=== PATIENT | female | born 1960 | race Caucasian/White ===

== ENCOUNTER → 2021-03-03 06:27 | Outpatient (CLI) | payer OTHER, SELFPAY ==
--- NOTE | 2021-03-03 | DI.MRI.S_ITS ---
PROCEDURE: MR BRAIN (IAC) WWO CON INDICATIONS: Vertigo of central origin TECHNIQUE: Noncontrast sagittal T1 spin echo, axial FLAIR, axial gradient echo, axial diffusion and ADC through the brain. Axial thin-slice 3D CISS, coronal TruFISP, axial T1 spin echo with fat saturation through the internal auditory canals. After the administration of contrast, thin slice axial and coronal T1 spin echo with fat saturation through the internal auditory canals, and axial T1 spin echo with fat saturation through the brain. COMPARISON: [facility], CT, HEAD WITHOUT CONTRAST, 07/26/2016, 8:06. CT, HEAD WITHOUT CONTRAST, 08/19/2017, 6:24. FINDINGS: Image quality: Excellent. Cerebellopontine angles: No cerebellopontine angle masses. Inner ear structures appear normally formed. No suspicious enhancement in the internal auditory canal or along the course of the 7th cranial nerve. CSF spaces: Ventricles are normal in size and shape. No extra-axial fluid collections. Basal cisterns are patent. Brain: No intracranial bleeds or mass effects. There is mild diffuse cerebral volume loss. There are minimal periventricular and subcortical white matter chronic microvascular ischemic changes. Naqvi-white matter interface is intact. No abnormal intracranial enhancement. Diffusion weighted images demonstrate no acute ischemic insults. Brainstem appears normal. Normal intravascular flow voids are present. Skull and face: Calvarial marrow signal is normal. Orbits appear normal. Sinuses: Sinuses and mastoids are clear. IMPRESSION: 1. No evidence of vestibular schwannoma. 2. No acute intracranial disease process. 3. No abnormal intracranial mass or mass effect. 4. No suspicious postcontrast enhancement. 5. Mild, diffuse cerebral volume loss. 6. Minimal periventricular and subcortical white matter chronic microvascular ischemic change Dictated by: Margarita Caballero MD, PhD on 03/03/2021 at 13:50 Approved by: Margarita Caballero MD, PhD on 03/03/2021 at 13:56
== END ==
PROVIDERS: PCP Internal Medicine; Referring Provider Otolaryngology; Visit Provider Otolaryngology
DX: H81.4 Vertigo of central origin (principal)
CPT/HCPCS: 70553

== ENCOUNTER 2021-04-15 22:22 | Emergency (ER) | payer OTHER, SELFPAY ==
[2021-04-15 22:28] VITALS: BP 186/103; PULSE 80; RESP 22; TEMP 36.7; O2SAT 98; BMI 47.2
--- NOTE | 2021-04-15 22:36 | DI.RAD.S_ITS ---
PROCEDURE: XR CHEST 1V INDICATIONS: chest pain TECHNIQUE: One view of the chest was acquired. COMPARISON: None. FINDINGS: Surgical changes and devices: None. Lungs and pleura: Lungs are clear. No pleural effusions or pneumothorax. Incidental note is made of an azygos lobe. Mediastinum: Mediastinal contours appear normal. Heart size is normal. Bones and chest wall: No suspicious bony lesions. Age-appropriate bony degenerative changes are seen. Overlying soft tissues appear unremarkable. IMPRESSION: Unremarkable single-view chest for age. Incidental note is made of: Azygos lobe Note: No significant discrepancy from the preliminary report. Dictated by: Geovanny Carpenter M.D. on 04/16/2021 at 8:21 Approved by: Geovanny Carpenter M.D. on 04/16/2021 at 8:21
[2021-04-15 22:46] LABS: Prothrombin Time 11.1 SECONDS (10.1-12.7)
[2021-04-15 22:49] LABS: PTT Partial Thromboplastin Tim 33 SECONDS (26.4-36.2)
[2021-04-15 22:50] LABS: Add Manual Diff / Slide Review NO; Alanine Aminotransferase 30 IU/L (<35); Albumin 4.1 g/dL (3.5-5.0); Albumin Globulin Ratio 1.5 (1.0-2.8); Alkaline Phosphatase 71 U/L (38-126); Aspartate Aminotransferase 33 IU/L (14-36); BUN Creatinine Ratio 42.4 (6-22); Basophils Absolute Auto 100 /uL (0-100); Basophils Percent Auto 0.9 % (0-2); Bilirubin Total 0.1 mg/dL (0.2-1.3); Blood Urea Nitrogen 25 mg/dL (7-17); Calcium 9.1 mg/dL (8.4-10.2); Carbon Dioxide 28 mmol/L (22-32); Chloride 107 mmol/L (98-107); Creatine Kinase 121 U/L (30-135); Eosinophils Absolute Auto 300 /uL (0-450); Eosinophils Percent Auto 4.1 % (2-4); Estimated Glomerular Filt Rate > 60.0 mL/min (>60); Globulin 2.8 g/dL (1.7-4.1); Glucose 121 mg/dL (70-100); Hemoglobin 12.7 g/dL (12.0-16.0); Lipase 179 U/L (23-300); Lymphocytes Absolute Auto 2300 /uL (1100-4500); Lymphocytes Percent Auto 35.6 % (25-40); Mean Corpuscular HGB Conc 32.7 % (30-36); Mean Corpuscular Hemoglobin 26.6 PG (26-34); Mean Corpuscular Volume 81.5 fL (80-100); Monocytes Absolute Auto 500 /uL (0-900); Neutrophils Absolute Auto 3400 /uL (1500-7000); Neutrophils Percent Auto 52.4 % (50-75); Platelet Count 210 X10^3/uL (150-400); Potassium 4.2 mmol/L (3.4-5.1); Red Blood Cell Count 4.79 X10^6/uL (4.0-5.2); Red Cell Distribution Width 15.9 % (11.6-14.8); Sodium 142 mmol/L (137-145); Total Protein 6.9 g/dL (6.3-8.2); White Blood Cell Count 6.5 X10^3/uL (4.5-11.0)
[2021-04-15 23:01] VITALS: BP 147/72; PULSE 76; RESP 22; O2SAT 97
[2021-04-15 23:02] LABS: Troponin I < 0.012 ng/mL (0.01-0.034)
[2021-04-15 23:05] LABS: CKMB % Relative Index 0.8 % (1.5-5.0); Creatine Kinase MB 0.99 ng/mL (<2.37); HEMOLYSIS 19 (0-50)
--- NOTE | 2021-04-15 23:14 | ED_ITS ---
HPI - Chest Pain General Chief Complaint: Chest Pain Stated Complaint: chest pain Time Seen by Provider: 04/15/21 23:11 Source: patient Mode of arrival: Ambulatory Limitations: no limitations History of Present Illness HPI narrative: Patient is a 60-year-old female with history of cardiac ablation presenting with worsening chest heaviness. 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 She does not feel palpitations she gets burning up into her neck it feels like indigestion. Today the symptoms seem to be worse she denies any shortness of breath. She states that she previously was on propranolol however due to bradycardia she was taken off of it. On the monitor she has frequent episodes of xin ELLIS complaint: chest pain Onset (ago): unknown Duration: intermittent Onset: during rest and during exertion Quality: heaviness Pain radiation: none Relieving factors: nothing Exacerbating factors: nothing Related Data Home Medications Medication Instructions Recorded Confirmed triamcinolone acetonide 1 tiny TOPICAL PRN #0 08/13/16 05/14/18 betamethasone dipropionate 1 tiny TOPICAL PRN #0 05/08/17 05/14/18 Previous Rx's Medication Instructions Recorded propranolol 10 mg PO Q8HP PRN #15 tab 05/08/17 Allergies Allergy/AdvReac Type Severity Reaction Status Date / Time amoxicillin [AMOXICILLIN] Allergy Severe RASH ALL Verified 04/15/21 22:28 OVER BODY penicillin G [PENICILLIN G] Allergy Severe RASH ALL Verified 04/15/21 22:28 OVER BODY Review of Systems Review of Systems Narrative: GENERAL: Denies chills, fatigue, malaise, fever, sweats, travel HEENT: Denies sinus pain, ear pain, sore throat, difficulty swallowing, neck pain RESPIRATORY: Denies dyspnea, cough, wheezing, hemoptysis, sputum. CARDIOVASCULAR: See HPI GASTROINTESTINAL: Denies nausea, vomiting, abdominal pain, diarrhea, con stipation, melena. : Denies dysuria, frequency, incontinence, hematuria, urinary retention, flank pain. MUSCULOSKELETAL: Denies weakness, joint pain, or bony pain SKIN: No rash, no erythema, no pruritus NEUROLOGIC: Denies weakness, dizziness, headache, numbness, change in speech, confusion PSYCHIATRIC: No concerning psychosocial issues. 12 point review of systems is negative except for those stated above and HPI Patient History Medical History (Updated 04/16/21 @ 01:09 by Camille Morales DO) Alopecia (~01/2016) Anxiety Bradycardia (08/13/16) Cataracts, bilateral (2015) Pure hypercholesterolemia (08/13/16) Stress Surgical History History of third molar tooth extraction Status post surgery (06/18/14) Status post tonsillectomy and adenoidectomy Status post tubal ligation Family History Mother Diabetes mellitus Social History Smoking Status: Never smoker Smoking Status: Never smoker Substance Use Type: does not use Exam Initial Vital Signs Initial Vital Signs: Vital Signs Temperature 98.0 F 04/15/21 22:28 Pulse Rate 80 04/15/21 22:28 Respiratory Rate 22 04/15/21 22:28 Blood Pressure 186/103 H 04/15/21 22:28 Pulse Oximetry 98 04/15/21 22:28 GENERAL: Alert were read 60-year-old female BMI 47 HEENT: Head atraumatic,EOMI, pupils reactive, face symmetric, moist mucous membranes CARDIOVASCULAR: Regular rate and rhythm without murmurs, rubs or gallops. RESPIRATORY: Breath sounds equal bilaterally, no wheezes rales or rhonchi. ABDOMEN: Soft, nontender. Normoactive bowel sounds all 4 quadrants. No guarding or rebound. EXTREMITIES: Normal range of motion, no clubbing or edema. Neurovascularly intact NEUROLOGICAL: Alert and oriented x4.Normal gait and speech. Cranial nerves II through XII grossly intact. SKIN: Warm, dry, no laceration, no petechiae, no rashes or lesions. Course Orders Ordered: ED Orders 04/15/21 22:35 Complete Blood Count AUTO DIFF Stat Comprehensive Metabolic Panel Stat Lipase Stat Magnesium Stat Partial Thromboplastin Time Stat Prothrombin Time INR Stat Thyroid Stimulating Hormone Stat Troponin & CK Cardiac Panel Stat 04/15/21 22:36 XR chest 1V Stat EKG-12 Lead Stat Discontinued Medications Metoprolol Tartrate (Metoprolol Tartrate 5 Mg/5 Ml Inj) 2.5 mg IV NOW ONE Stop: 04/15/21 23:27 Last Admin: 04/15/21 23:34 Dose: 2.5 mg Documented by: KGALLAG Vital Signs Vital signs: Vital Signs - 8 hr 04/15/21 22:28 04/15/21 23:01 04/15/21 23:31 Temperature 98.0 F Pulse Rate 80 76 70 Respiratory Rate 22 22 22 Blood Pressure 186/103 H 147/72 H 158/66 H Pulse Oximetry 98 97 97 04/15/21 23:51 04/16/21 00:00 04/16/21 00:01 Temperature Pulse Rate 56 L 52 L 54 L Respiratory Rate 21 24 Blood Pressure 133/61 Pulse Oximetry 97 97 04/16/21 00:30 04/16/21 01:00 04/16/21 01:14 Temperature Pulse Rate 56 L 55 L 57 L Respiratory Rate 20 23 45 H Blood Pressure 129/83 Pulse Oximetry 97 97 97 MDM - Chest Pain Lab Data Attestation: I reviewed the patient's lab results. Result diagrams: 04/15/21 22:35 04/15/21 22:35 Labs: Lab Results 04/15/21 04/15/21 04/15/21 Range/Units 22:35 22:35 22:35 WBC 6.5 (4.5-11.0) X10^3/uL RBC 4.79 (4.0-5.2) X10^6/uL Hgb 12.7 (12.0-16.0) g/dL Hct 39.0 (36-46) % MCV 81.5 (80-100) fL MCH 26.6 (26-34) PG MCHC 32.7 (30-36) % RDW 15.9 H (11.6-14.8) % Plt Count 210 (150-400) X10^3/uL Neut % (Auto) 52.4 (50-75) % Lymph % (Auto) 35.6 (25-40) % [place] % (Auto) 7.0 (3-14) % Eos % (Auto) 4.1 H (2-4) % Baso % (Auto) 0.9 (0-2) % Neut # (Auto) 3400 (9427-6506) /uL Lymph # (Auto) 2300 (4024-4411) /uL [place] # (Auto) 500 (0-900) /uL Eos # (Auto) 300 (0-450) /uL Baso # (Auto) 100 (0-100) /uL PT 11.1 (10.1-12.7) SECONDS INR 1.0 (0.9-1.3) APTT 33 (26.4-36.2) SECONDS Sodium 142 (137-145) mmol/L Potassium 4.2 (3.4-5.1) mmol/L Chloride 107 (98-107) mmol/L Carbon Dioxide 28 (22-32) mmol/L BUN 25 H (7-17) mg/dL Creatinine 0.59 (0.52-1.04) mg/dL Estimated GFR > 60.0 (>60) mL/min BUN/Creatinine Ratio 42.4 H (6-22) Glucose 121 H (70-100) mg/dL Calcium 9.1 (8.4-10.2) mg/dL Magnesium (1.6-2.3) mg/dL Total Bilirubin 0.1 L (0.2-1.3) mg/dL AST 33 (14-36) IU/L ALT 30 (<35) IU/L Alkaline Phosphatase 71 (38-126) U/L Total Creatine Kinase 121 (30-135) U/L CK-MB (CK-2) 0.99 (<2.37) ng/mL CK-MB (CK-2) Rel Index 0.8 L (1.5-5.0) % Troponin I < 0.012 (0.01-0.034) ng/mL Total Protein 6.9 (6.3-8.2) g/dL Albumin 4.1 (3.5-5.0) g/dL Globulin 2.8 (1.7-4.1) g/dL Albumin/Globulin Ratio 1.5 (1.0-2.8) Lipase 179 (23-300) U/L TSH (0.47-4.68) uIU/mL 04/15/21 04/15/21 Range/Units 22:35 22:35 WBC (4.5-11.0) X10^3/uL RBC (4.0-5.2) X10^6/uL Hgb (12.0-16.0) g/dL Hct (36-46) % MCV (80-100) fL MCH (26-34) PG MCHC (30-36) % RDW (11.6-14.8) % Plt Count (150-400) X10^3/uL Neut % (Auto) (50-75) % Lymph % (Auto) (25-40) % [place] % (Auto) (3-14) % Eos % (Auto) (2-4) % Baso % (Auto) (0-2) % Neut # (Auto) (7379-9632) /uL Lymph # (Auto) (1004-4305) /uL [place] # (Auto) (0-900) /uL Eos # (Auto) (0-450) /uL Baso # (Auto) (0-100) /uL PT (10.1-12.7) SECONDS INR (0.9-1.3) APTT (26.4-36.2) SECONDS Sodium (137-145) mmol/L Potassium (3.4-5.1) mmol/L Chloride (98-107) mmol/L Carbon Dioxide (22-32) mmol/L BUN (7-17) mg/dL Creatinine (0.52-1.04) mg/dL Estimated GFR (>60) mL/min BUN/Creatinine Ratio (6-22) Glucose (70-100) mg/dL Calcium (8.4-10.2) mg/dL Magnesium 2.0 (1.6-2.3) mg/dL Total Bilirubin (0.2-1.3) mg/dL AST (14-36) IU/L ALT (<35) IU/L Alkaline Phosphatase (38-126) U/L Total Creatine Kinase (30-135) U/L CK-MB (CK-2) (<2.37) ng/mL CK-MB (CK-2) Rel Index (1.5-5.0) % Troponin I (0.01-0.034) ng/mL Total Protein (6.3-8.2) g/dL Albumin (3.5-5.0) g/dL Globulin (1.7-4.1) g/dL Albumin/Globulin Ratio (1.0-2.8) Lipase (23-300) U/L TSH 3.38 (0.47-4.68) uIU/mL Imaging Data Chest x-ray: Radiologist's Impression: Preliminary report no acute findings ECG Data Attestation: I personally reviewed and interpreted this ECG as follows: Prior ECG tracings: available for review Interpretation: Bigeminy rate [address] changes MDM Narrative Medical decision making narrative: Patient has very frequent PVCs and by gemma knee she does go into normal sinus rhythm for a bit. However patient has had on going symptoms difficult decide what made it worse today day a. I do suspect that this is probably chronic however she is symptomatic. She also states she has a history of bradycardia prior EKGs do show sinus bradycardia with a rate as low as 34 in 2016. She states she is extremely sensitive to medication she was previously on propranolol but had to stop due to bradycardia. She is given 2.5 mg of Lopressor which did seem to help initially however rate increase in PVCs increased as well. Dr. Moser, cardiology updated patient's symptoms test results he actually looked in patient's record patient has called his office multiple times for similar symptoms as today. He has no suggestion of any medication does not seem emergent. Recommend patient follow-up with cardiology for probable stress test. Patient has no lateralized abnormalities at this time to cause such frequent PVCs. Discussed cardiology recommendations with patient along with test results. At this time she agrees to follow up with Cardiology and return the ED only if needed. Discharge Plan Departure Patient Disposition: Home Clinical Impression: Bigeminal rhythm Instructions: Premature Ventricular Beats Activity Restrictions/Additional Instructions: *You have been diagnosed with bigeminy *What to do: At this time after discussing with Cardiology it appears that this is on going. It is recommended that you follow-up with cardiology to discuss options. You also will likely need a stress test *Continue to take medications as directed *Follow up with your primary care provider in 2-3 days *Return to ER if you should have increasing chest pain palpitations dizziness or lightheadedness or any new, worsening or concerning symptoms Prescriptions: No Action triamcinolone acetonide 0.1 % lotion 1 tiny Topical PRNQty: 0 RF: 0 betamethasone dipropionate 0.05 % cream 1 tiny Topical PRNQty: 0 RF: 0 propranolol 10 MG tablet 10 mg PO Q8HP PRNQty: 15 RF: 1 Referrals: Humble Chavis MD [Primary Care Provider] -
[2021-04-15 23:31] VITALS: BP 158/66; PULSE 70; RESP 22; O2SAT 97
[2021-04-15] MEDS: METOPROLOL TARTRATE 5 MG/5 ML INJ 2.5 MG IV (23:34)
[2021-04-15 23:51] VITALS: PULSE 56
[2021-04-16] VITALS: PULSE 52; RESP 21; O2SAT 97
[2021-04-16 00:01] VITALS: BP 133/61; PULSE 54; RESP 24; O2SAT 97
[2021-04-16 00:10] LABS: Thyroid Stimulating Hormone 3.38 uIU/mL (0.47-4.68)
[2021-04-16 00:30] VITALS: PULSE 56; RESP 20; O2SAT 97
[2021-04-16 01:00] VITALS: PULSE 55; RESP 23; O2SAT 97
[2021-04-16 01:14] VITALS: BP 129/83; PULSE 57; RESP 45; O2SAT 97
== END 2021-04-16 01:24 | disposition home or self-care (01) ==
PROVIDERS: Emergency Provider Emergency Medicine; PCP Internal Medicine
DX: I49.8 Other specified cardiac arrhythmias (principal); R07.9 Chest pain, unspecified
CPT/HCPCS: 36415; 71045; 80053; 82550; 82553; 83690; 83735; 84443; 84484; 85025; 85610; 85730; 93005; 96374; 99284

== ENCOUNTER → 2021-05-10 09:50 | Outpatient (CLI) | payer OTHER, SELFPAY ==
[2021-05-10 10:58] LABS: COVID19 -Nasal RAPID Negative (Negative)
== END ==
PROVIDERS: PCP Internal Medicine; Visit Provider Physician Assistant
DX: Z01.812 Encounter for preprocedural laboratory examination (principal); Z20.822 Contact with and (suspected) exposure to COVID-19
CPT/HCPCS: 87635

== ENCOUNTER → 2021-05-12 15:00 | Outpatient (CLI) | payer OTHER, SELFPAY ==
--- NOTE | 2021-05-12 20:07 | DI.NM.S_ITS ---
DATE OF SERVICE: 05/12/2021 PROCEDURE: Exercise stress test. INDICATION: PVCs. EXERCISE STRESS TEST: The patient underwent exercise stress test under the supervision of an attending staff. The patient walked on Dany protocol for 5 minutes and 01 seconds, achieved 117 percent of target heart rate. Baseline blood pressure 142/86. Peak blood pressure 170/100. Maximum heart rate achieved 188 beats per minute. The patient achieved 7 METs of workload. No chest pain. She felt fatigue and exertional shortness of breath. Baseline EKG revealed sinus rhythm with frequent monomorphic PVCs, including bigeminy pattern. During exercise, there was enhanced chronotropic response. PVCs got suppressed during exercise. During exercise, no significant PVCs or ventricular arrhythmias seen. PVCs reappeared in recovery. Occasional ventricular couplets were seen, as well. No obvious ventricular tachycardia seen. During exercise, there were no convincing ischemic changes. CONCLUSION: 1. Exercise stress test is negative for inducible ischemia. 2. The patient has frequent resting monomorphic premature ventricular contractions, including ventricular couplets, which got entirely suppressed with exercise. There was enhanced chronotropic response with sinus tachycardia during exercise. Recurrence of premature ventricular contractions during recovery. Diminished exercise tolerance. The patient achieved 7 METs of workload. Baseline blood pressure 142/86 and peak blood pressure 170/100 mmHg. Jory Esposito - Linda/ines doc#: [id number]/job#: [id number] dd: 05/12/2021 16:59:00 dt: 05/12/2021 19:45:00 DICTATING /COPIES TO: Deni Vaughan MD COPIES MNE: NURYS;
== END ==
PROVIDERS: PCP Internal Medicine; Referring Provider Internal Medicine Cardiovascular Disease; Visit Provider Internal Medicine Cardiovascular Disease
DX: I49.3 Ventricular premature depolarization (principal)
CPT/HCPCS: 93017